=== PATIENT | male | born 2000 | race Caucasian/White ===

== ENCOUNTER 2020-10-07 14:05 | Outpatient (REF) | payer MEDICAID, SELFPAY | END 2020-10-07 14:06 | disposition home or self-care (01) | LOC: HO.LAB 14:05 | PROVIDERS: Visit Provider Internal Medicine | DX: Z20.822 Contact with and (suspected) exposure to COVID-19 (principal) | CPT/HCPCS: 36415; C9803; U0003 ==

== ENCOUNTER 2021-06-19 08:47 | Outpatient (REF) | payer MEDICAID, SELFPAY | END 2021-06-19 08:48 | disposition home or self-care (01) | LOC: HO.LAB 08:47 | PROVIDERS: Visit Provider Internal Medicine | DX: Z20.822 Contact with and (suspected) exposure to COVID-19 (principal) | CPT/HCPCS: C9803; U0003; U0005 ==

== ENCOUNTER 2021-08-10 21:43 | Emergency (ER) | payer MEDICAID, SELFPAY ==
[2021-08-10 21:46] VITALS: BP 128/76; PULSE 73; RESP 18; TEMP 36.6; O2SAT 98; BMI 30.1
== END 2021-08-11 00:35 | disposition left against medical advice (07) ==
PROVIDERS: Emergency Provider Emergency Medicine
DX: R20.0 Anesthesia of skin (principal)
CPT/HCPCS: 99281; 99282

== ENCOUNTER 2025-08-30 16:32 | Emergency (ER) | payer SELFPAY ==
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
[2025-08-30 16:36] VITALS: BP 140/74; PULSE 75; RESP 18; TEMP 36.2; O2SAT 98; BMI 29.4
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
[2025-08-30 19:36] VITALS: BP 140/74; PULSE 75; RESP 18; TEMP 36.2; O2SAT 98
== END 2025-08-30 19:48 | disposition home or self-care (01) ==
LOC: HO.ED 19:45
PROVIDERS: Emergency Provider Student in an Organized Health Care Education/Training Program; PCP Internal Medicine
DX: S13.4XXA Sprain of ligaments of cervical spine, initial encounter (principal); R51.9 Headache, unspecified; M54.2 Cervicalgia; V43.52XA Car driver injured in collision with other type car in traffic accident, initial encounter; Y93.9 Activity, unspecified; Y92.410 Unspecified street and highway as the place of occurrence of the external cause; Y99.8 Other external cause status
CPT/HCPCS: 70450; 72125; 99282; 99284

== ENCOUNTER → 2025-08-30 16:38 | Outpatient (BNV) | payer BC, SELFPAY | PROVIDERS: Emergency Provider Student in an Organized Health Care Education/Training Program; PCP Internal Medicine; Visit Provider Student in an Organized Health Care Education/Training Program | DX: M54.2 Cervicalgia (principal); S09.90XA Unspecified injury of head, initial encounter; Z04.3 Encounter for examination and observation following other accident | CPT/HCPCS: 70450; 72125 ==